=== PATIENT | female | born 1945 | race African-American/Black ===

== ENCOUNTER 2017-03-27 06:53 | Day surgery (SDC) | payer MEDICARE ==
[~2017-03-27] VITALS: Ht 158.8 cm; Wt 96.0 kg
[2017-03-27] VITALS (9 sets, daily range): BP systolic 114–172; BP diastolic 60–85; PULSE 56–86; RESP 11–19; Ht 158.8 cm; Wt 96.0 kg
[~2017-03-27 06:53] MED LIST: AMLO5TAB4 PO; ASPI81TA3 PO; LISI40TA9 PO; METF1000 PO; METF500T4 PO; METO-448 PO
[2017-03-27] MEDS ORDERED: MIDAZOLAM 1 MG/ML 2 ML INJ IV PRN (07:00)
[2017-03-27] MEDS ORDERED: HYDROmorphONE (0.2 MG/ML) 10ML SYG IV PRN ×3 (07:00)
[2017-03-27] MEDS ORDERED: MEPERIDINE 25 MG INJ IV PRN (07:00)
[2017-03-27] MEDS ORDERED: OXYCODONE/ACETAMINOPHEN (5/325) TAB PO PRN ×2 (07:00)
[2017-03-27] MEDS ORDERED: morphine (1 MG/ML) 10ML SYRINGE IV PRN ×3 (07:00)
[2017-03-27] MEDS ORDERED: LABETALOL HCL 20MG INJ IV PRN (07:00)
[2017-03-27] MEDS ORDERED: DIPHENHYDRAMINE 50 MG INJ IV PRN (07:00)
[2017-03-27] MEDS ORDERED: hydrALAzine 20 MG INJ IV PRN (07:00)
[2017-03-27] MEDS ORDERED: ATROPINE 1 MG/10 ML SYRINGE IV PRN (07:00)
[2017-03-27] MEDS ORDERED: FENTAnyl 50 MCG/ML VIAL IV PRN ×2 (07:00)
[2017-03-27] MEDS ORDERED: ONDANSETRON 4 MG INJ IV PRN (07:00)
[2017-03-27] MEDS ORDERED: EPHEDrine SULFATE 50 MG/5 ML SYG IV PRN (07:00)
[2017-03-27] MEDS: DICLOFENAC 0.1% 2.5 ML OPH OPER SCH ×3 (07:56→08:12)
[2017-03-27] MEDS: CIPROFLOXACIN 0.3% 2.5 ML OPH OPER SCH ×3 (07:56→08:11)
[2017-03-27] MEDS: CYCLOPENTOLATE/PHENYLEPH 2 ML OPH OPER SCH ×3 (07:56→08:12)
[2017-03-27] MEDS: TROPICAMIDE 1% 3ML OPH OPER SCH ×3 (07:57→08:11)
--- NOTE | 2017-03-27 08:17 | HPN ---
Date/Time of Note Date/Time of Note DATE: 03/27/17 TIME: 08:17 Interval H&P Admission Note Pt. seen H&P reviewed: No system changes JENNIFER RAZA MD Mar 27, 2017 08:17
[2017-03-27] MEDS ORDERED: DEXAMETHASONE 4 MG/ML 1 ML INJ INJ ONE (09:15)
[2017-03-27] MEDS ORDERED: CEFAZOLIN 1 GM INJ INJ ONE (09:15)
[2017-03-27] MEDS ORDERED: CARBACHOL 0.01% 1.5 ML OPH INJ IO ONE (09:15)
[2017-03-27] MEDS ORDERED: EPINEPHrine 1 MG INJ ONE (09:24)
[2017-03-27] MEDS ORDERED: LIDOCAINE 4% (MPF) 5 ML INJ ONE (09:24)
[2017-03-27] MEDS ORDERED: GENTAMICIN 80 MG INJ ONE (09:24)
[2017-03-27] MEDS ORDERED: CARBACHOL 0.01% 1.5 ML OPH INJ ONE (09:24)
[2017-03-27] MEDS ORDERED: DEXAMETHASONE 4 MG/ML 1 ML INJ ONE (09:24)
[2017-03-27] MEDS ORDERED: PROPOFOL 20 ML ONE (09:56)
[2017-03-27] MEDS ORDERED: LIDOCAINE 2% (SDV) 5 ML INJ ONE (09:56)
--- NOTE | 2017-03-27 10:15 | HPN ---
Date/Time of Note Date/Time of Note DATE: 03/27/17 TIME: 10:15 Interval H&P Admission Note Pt. seen H&P reviewed: No system changes JENNIFER RAZA MD Mar 27, 2017 10:15
--- NOTE | 2017-03-27 10:16 | SIPON ---
Date/Time of Note Date/Time of Note DATE: 03/27/17 TIME: 10:15 Operative Report Preoperative Diagnosis cataract Postoperative Diagnosis same Operation/Procedure Performed cataract surgery Surgeon: JENNIFER RAZA MD Anesthesia Type: MAC Estimated Blood Loss: none Transfusion Required: no Specimen: none Grafts/Implants posterior chamber lens implant Complications: no JENNIFER RAZA MD Mar 27, 2017 10:16
--- NOTE | 2017-03-27 10:33 | OPR ---
DATE OF OPERATION: 03/27/2017 PREOPERATIVE DIAGNOSIS: Cataract, right eye. POSTOPERATIVE DIAGNOSIS: Cataract, right eye. SURGEON: Bonifacio Love MD ELECTRIC SERVICEMAN: ANESTHESIA: Local standby. ANESTHESIOLOGIST: Dr. Vogt. OPERATION: Phacoemulsification with posterior chamber intraocular lens implant, right eye. PROCEDURE: The patient was brought to the operating room and placed on the table with an IV in place and the patient attached to an assembler steam and gas turbine. Oxygen was given via face mask. After some intravenous sedation was administered, local anesthesia was given using Xylocaine 2% with epinephrine, mixed with Marcaine 0.5%. This was given in a lid block and retrobulbar injection. The patient was then prepped and draped in the usual sterile manner. A wire lid speculum was inserted between the lids of the right eye. A Superblade was used to enter the anterior chamber at the corneoscleral limbus at the 10:30 o'clock position. A separate incision was made using a 3.0-mm keratome which entered the corneoscleral junction at the 12 o'clock position. Through this 3- mm opening, an irrigating cystotome was introduced into the anterior chamber. The chamber was filled with Viscoat and an anterior capsulotomy was performed. Balanced salt solution was then used for hydrodissection of the lens. A phacoemulsification handpiece was then brought into the field and introduced into the anterior chamber. The lens nucleus was emulsified using a deep groove and cracking the nucleus into quadrants. Following this, each quadrant was aspirated and emulsified at the pupillary margin. After this was completed, the irrigation/aspiration handpiece was brought to the field, introduced into the posterior chamber, and the lens cortical material was removed. When this was completed, additional Provisc was injected into the anterior and posterior chambers. The 3-mm opening had its internal lips enlarged, and then the posterior chamber intraocular lens measuring 22.5 diopters ([employer], model [id number]) was then injected into the posterior chamber using the lens injector system. After the leading haptic was introduced into the capsular bag and the lens optic was present in the center of the eye, the injector was removed and the trailing haptic was grasped with non-toothed forceps and introduced into the capsular fold superiorly. A Sinskey hook was then used to rotate the intraocular lens so that the lips were oriented in the horizontal meridian. One 10-0 nylon suture was placed across the wound. Prior to tying, the irrigation/aspiration handpiece was reintroduced into the anterior chamber to remove the Viscoat. Miochol was instilled to constrict the pupil, and then the 10-0 nylon suture was tied. The ends were cut short and then the knot was buried. Then, 0.5 mL of dexamethasone and 0.5 mL of Ancef were injected into the sub-Tenon space in the inferior fornix. Ciloxan drops were then placed on the surface of the eye. The speculum was removed and a patch was applied. The patient then left the operating room in satisfactory condition. Dictated By: Bonifacio Love MD /jeanna/nell /Document#: [id number]
== END 2017-03-27 11:35 | disposition home or self-care (01) ==
LOC: SDS 06:53
PROVIDERS: ATTEND Ophthalmology
DX: H26.9 Unspecified cataract (principal); E11.9 Type 2 diabetes mellitus without complications; I10 Essential (primary) hypertension; E78.00 Pure hypercholesterolemia, unspecified
CPT/HCPCS: 66984; 82962; J0171; J0690; J1100; J1580; V2632